=== PATIENT | male | born 1980 | race Caucasian/White ===

== ENCOUNTER 2019-09-16 03:58 | Emergency (ER) | payer OTHER ==
[2019-09-16] MEDS ORDERED: LIDOCAINE 1% W/ EPINEPHRINE 20 ML VIAL INJ ONE (04:10)
[2019-09-16 04:11] VITALS: TEMP 96.3; O2SAT 96
--- NOTE | 2019-09-16 04:42 | ED.PDOC ---
History of Present Illness - General Chief Complaint: Laceration Stated Complaint: laceration, left forearm Time Seen by Provider: 09/16/19 04:39 - History of Present Illness Initial Comments: 39-year-old male presents to the emergency room with left forearm laceration, which occurred last night about 6 hours ago while working on a motorcycle. Initially had reported significant bleeding, then it stopped, was not sure he needed stitches, so went to sleep. Awoke with more blood in the bed so brought to the ER by his girlfriend. Denies numbness or weakness distal to the injury. Home Medications: Ambulatory Orders Cephalexin Monohydrate [Keflex] 500 mg PO TID #21 cap 09/16/19 Review of Systems - Review of Systems Review of Systems: 09/16/19 04:46 General: Denies generalized weakness, fever, arthralgia/myalgia HEENT: Denies sore throat, rhinorrhea Cardiovascular: Denies chest pain, palpitations Respiratory: Denies SOB, cough Gastrointestinal: Denies abdominal pain, vomiting, diarrhea : Denies dysuria, frequency Musculoskeletal: Denies extremity pain, extremity swelling Integument: lac, as in HPI Neuro: Denies focal weakness or numbness Psych: Denies depression Past Medical History (General) - Patient Medical History Hx Seizures: No Hx Stroke: No Hx Dementia: No Hx Asthma: No Hx of COPD: No Hx Cardiac Disorders: No Hx Congestive Heart Failure: No Hx Pacemaker: No Hx Hypertension: No Hx Thyroid Disease: No Hx Diabetes: No Hx Gastroesophageal Reflux: No Hx Renal Disease: No Hx Cancer: No Hx of HIV: No Hx Hepatitis C: No Hx MRSA: No Surgical History: no surgical history - Vaccination History Hx Tetanus, Diphtheria Vaccination: Yes Hx Influenza Vaccination: No Hx Pneumococcal Vaccination: No - Social History Hx Tobacco Use: Yes Cigarettes Packs Per Day: 1 Hx Chewing Tobacco Use: No Hx Alcohol Use: Yes Hx Substance Use: No Hx Substance Use Treatment: No Hx Depression: No Feels Threatened In Home Enviroment: No Feels Threatened In a Relationship: No Hx Physical Abuse: No Hx Emotional Abuse: No Hx Suspected Abuse: No - Female History Patient is a Female of Child Bearing Age (10 -59 yrs old): No - Triage Comment ED Triage Comment: Laceration to left forarm with minor bleeding noted upon movment of the left arm. Family Medical History - Family History Father Family History: Unknown Physical Exam - Physical Exam Comments: General Appearance: Patient is awake and alert. Skin: Warm and dry. No diaphoresis. irregular L shaped lac on left forearm, 5cm Head: Normocephalic/atraumatic. Eyes: PERRL, lids, conjunctiva and sclera unremarkable. EOMI intact. Neck: Supple. No LAD. Respiratory: Normal rate and effort. Breath sounds clear bilaterally. Cardiovascular: Regular rate. Heart sounds normal. No murmur. GI: Abdomen soft, non-distended and non-tender. No rebound/guarding. Bowel sounds normal. Musculoskeletal: Extremities- Normal range of motion. No effusion, cyanosis, edema. Neurological: Alert. No facial palsy. Speech clear. Gag intact. No motor deficit, str symmetric. No sensory deficit. Procedures - Laceration/Wound Repair Left Arm Wound's Depth, Shape: into muscle, irregular, flap Wound Explored: clean Irrigated w/ Saline (cc's): 1,000 Anesthesia: Lidocaine w/ Epi Volume Anesthetic (cc's): 7 Wound Repaired With: sutures Suture Size/Type: 4:0, prolene Number of Sutures: 6 Layer Closure?: No Sterile Dressing Applied?: Yes Departure - Departure Clinical Impression: Laceration Time of Disposition: 04:40 Disposition: Discharge to Home or Self Care Condition: Good Departure Forms: ED Discharge - Pt. Copy, Patient Portal Self Enrollment Instructions: DI for Laceration Repair, DI for Laceration Repair -- Simple Diet: resume usual diet Activity: increase activity as tolerated Prescriptions: Cephalexin Monohydrate [Keflex] 500 mg PO TID #21 cap Home Medications: Ambulatory Orders Cephalexin Monohydrate [Keflex] 500 mg PO TID #21 cap 09/16/19 Additional Instructions: Return for removal of sutures in 7 days Comments: Bar Myers MD [facility] #[id number]
[2019-09-16 04:50] VITALS: BP 128/90
== END 2019-09-16 04:49 | disposition home or self-care (01) ==
LOC: ER 03:58
DX: S51.812A Laceration without foreign body of left forearm, initial encounter (principal); W26.0XXA Contact with knife, initial encounter; Y93.89 Activity, other specified; Y92.9 Unspecified place or not applicable; Z87.891 Personal history of nicotine dependence